=== PATIENT | female | born 1965 | race Caucasian/White ===

== ENCOUNTER 2017-01-26 19:19 | Inpatient (IN) | payer OTHER ==
[~2017-01-26] VITALS: Ht 152.4 cm; Wt 62.4 kg
[~2017-01-26 19:19] MED LIST: IRON PO
[2017-01-26] MEDS ORDERED: SOD CHLORIDE 0.9% 1,000 ML IV ONE (20:30)
[2017-01-26 21:07] LABS: BASOPHILS % 0.5 % (0.0-2.0); EOSINOPHILS # 0.3 10^3/ul (0.0-0.5); EOSINOPHILS % 4.4 % (0.0-7.0); HEMATOCRIT 39.3 % (37.0-47.0); LYMPHOCYTES # 1.8 10^3/ul (0.8-2.9); LYMPHOCYTES % 24.4 % (15.0-51.0); MEAN CORPUSCULAR HEMOGLOBIN 28.2 pg (29.0-33.0); MEAN CORPUSCULAR HGB CONC 33.1 g/dl (32.0-37.0); MEAN CORPUSCULAR VOLUME 85.2 fl (82.0-101.0); MEAN PLATELET VOLUME 9.7 fl (7.4-10.4); MONOCYTE # 0.5 10^3/ul (0.3-0.9); MONOCYTES % 7.4 % (0.0-11.0); NEUTROPHIL # 4.6 10^3/ul (1.6-7.5); NEUTROPHILS % 63.2 % (39.0-77.0); PLATELET COUNT 230 10^3/UL (140-415); RED BLOOD COUNT 4.61 10^6/ul (4.20-5.40); RED CELL DISTRIBUTION WIDTH 12.1 % (11.5-14.5); WHITE BLOOD COUNT 7.3 10^3/ul (4.8-10.8)
[2017-01-26 21:31] LABS: ALBUMIN 4.3 g/dl (3.3-4.9); ALBUMIN/GLOBULIN RATIO 1.04; BILIRUBIN,INDIRECT 0.2 mg/dl (0-1.1); BILIRUBIN,TOTAL 0.2 mg/dl (0.2-1.3); CALCIUM 9.6 mg/dl (8.4-10.2); CREATININE 0.74 mg/dl (0.44-1.00); POTASSIUM 3.9 mmol/L (3.5-5.1); TOTAL PROTEIN 8.4 g/dl (6.1-8.1)
[2017-01-26] MEDS ORDERED: IOHEXOL 300MG/ML 150 ML BTL ONE (21:43)
[2017-01-26] MEDS ORDERED: SOD CHLORIDE 0.9% 100 ML ONE (21:43)
[2017-01-26 21:45] LABS: ADD UMIC YES; UR ASCORBIC ACID 20 mg/dL (NEGATIVE); UR BILIRUBIN (Dip) NEGATIVE (NEGATIVE); UR BLOOD (Dip) NEGATIVE (NEGATIVE); UR CLARITY CLEAR (CLEAR); UR COLOR YELLOW (YELLOW); UR GLUCOSE (Dip) NEGATIVE (NEGATIVE); UR KETONES (Dip) NEGATIVE (NEGATIVE); UR LEUKOCYTE ESTERASE (Dip) 1+ Leu/ul (NEGATIVE); UR NITRITE (Dip) NEGATIVE (NEGATIVE); UR RBC 1 /HPF (0-5); UR SPECIFIC GRAVITY (Dip) 1.014 (1.003-1.030); UR TOTAL PROTEIN (Dip) NEGATIVE (NEGATIVE); UR UROBILINOGEN (Dip) NEGATIVE (NEGATIVE)
--- NOTE | 2017-01-26 22:15 | RADRPT ---
PROCEDURE: CT abdomen and pelvis without contrast. CLINICAL INDICATION: Abscess TECHNIQUE: CT scan of the abdomen and pelvis without oral contrast was performed and is reconstruc shanna at 2.5 mm contiguous axial intervals from the dome of the diaphragm to the inferior pubic rami.. The patient was scanned with intravenous contrast. Sagittal and coronal reformatted images were o btained from the axial source images. The calculated radiation dose measures 482 mGy centimeters. Th e CTDI measures 9 mGy. Individualized dose optimization technique was used for the performance of this exam. This included 1. Automated exposure control. 2. Adjustment of the mA and / or kV according to the patient's size. 3. Use of iterative reconstructed technique. COMPARISON: None FINDINGS: The lung bases are clear of any infiltrate or nodule. No effusion is seen. The liver is of normal size, contour and attenuation with no mass or ductal dilatation. No gallston es are visualized. No splenic, adrenal or pancreatic abnormalities present. Kidneys are of normal size and contour. No hydronephrosis or solid masses seen. There is a 3 mm no nobstructing stone in the midpole of the right kidney. Noted are multiple parenchymal cysts of both kidneys, the largest of which is in the lower pole of the right kidney measuring 3 cm in diameter. U reters are of normal course and caliber with no stone. No bladder mass or stone is present. Uterus is been removed. There is no adnexal mass. There is no aneurysm. No adenopathy is present. No bowel mass or obstruction is present. The appendix is not clearly visualized, however, no infl edwar appendix is seen.. No phlegmon, ascites or pneumoperitoneum is visualized. The osseous structures are intact. Noted is a rim enhancing collection in the supraumbilical anterior abdominal wall contained within t he subcutaneous fat. This measures 5.7 cm TR by 3.0 cm AP by 4.4 cm CC. There are probable septation s. No gas is seen within this collection. This is suspicious for either an abscess or liquefied ysabel marry. There is stranding of the surrounding subcutaneous fat. There is no evidence of communication with the peritoneal cavity. IMPRESSION: 5.7 x 3.0 x 4.4 cm enhancing collection in the anterior abdominal wall suspicious for abscess. This collection is amendable to ultrasound-guided aspiration and drainage. No evidence of communication w ith the peritoneal cavity. Nonobstructing 3 mm right renal calculus. Bilateral cortical renal cysts. Post hysterectomy. .Alejandro Chauhan MD, Date Time Electronically viewed and signed by .Alejandro Chauhan MD, on 01/26/2017 22:14 .A/
[2017-01-26] MEDS ORDERED: LIDOCAINE 1% (MDV) 20 ML INJ SC ONE (22:30)
[2017-01-26] MEDS ORDERED: morphine 4 MG/ML VIAL IV STA (23:36)
--- NOTE | 2017-01-27 01:51 | HP ---
Date/Time of Note Date/Time of Note DATE: 01/27/17 TIME: 01:48 Assessment/Plan VTE Prophylaxis VTE Prophylaxis Intervention: SCD's Assessment/Plan Chief Complaint/Hosp Course This is a 51-year-old female being admitted to the [facility] floor for: #1 abdominal wall abscess: CT scan does not show any connection with the peritoneal cavity. At the current time will start the patient on clindamycin. Patient apparently had an attempted bedside I&D which did elicit some drainage from the abscess however he was not complete. Will obtain a CT-guided drainage of the abscess in the a.m. Morphine for pain. #2 Urinary tract infection: Ceftriaxone 1 g every 24 hours #3 Nephrolithiasis: There is approximately 3 mm nonobstructing right kidney stone. At the current time will recommend fluid hydration and consider Flomax on discharge. #4 DVT and GI prophylaxis: SCDs, no GI prophylaxis indicated Further treatment strategy will be implemented as per the clinical course Problems: HPI/ROS Admit Date/Time Admit Date/Time Hx of Present Illness Chief complaint: Abdominal pain, mass This is a pleasant 51-year-old female who presents to the ED complaining of a mass on her abdomen for approximately 5 weeks. Patient states that she started noticing the mass approximately 5 weeks ago and it has gotten progressively bigger and since the pain is gone where she had come to the ED. She was not able to tolerate the pain and she was sitting in the position. She denies any fevers. She does report nausea. But denies any vomiting. She denies any trauma to the area of the mass. Denies any medication injections to the site of the mass. In the ED, apparently patient also had bedside drainage attempted which did result in partial drainage of the underlying abscess,though I cannot find documentation of the attempted drainage. The patient does report improvement in her pain after the I&D. Allergies: NKDA Medications: See MAR ROS Const: As per HPI Eyes : No pain discharge or redness or change in visual acuity ENT: No pain, sore throat, congestion, congestion, dysphagia or discharge Respiratory: No shortness of breath, cough, sputum, wheezing, or pleuritic pain Cardiovascular: No chest pain, palpitation, PND, or edema GI : As per HPI Genitourinary: No dysuria, hematuria, flank pain , discharge or CVA tenderness Musculoskeletal: No joint pain, back pain, neck pain, restricted range of motion in neck or joints Skin: As per HPI Neuro: No headache, dizziness, syncope, seizure, focal weakness Endocrine: No polyuria, polydipsia, temperature intolerance Psych: No hallucination, depression, anxiety or suicidal ideation PMH/Family/Social Past Medical History Medical History: no pertinent history Past Surgical History Liposuction, hysterectomy, appendectomy Family History Significant Family History: no pertinent family hx Social History Alcohol Use: none Smoking Status: Never smoker Drug Use: none Exam/Review of Systems Vital Signs Vitals Vital Signs Date Time Temp Pulse Resp B/P Pulse Ox O2 Delivery O2 Flow Rate FiO2 01/26/17 19:36 98.7 88 20 139/96 97 Exam Exam General: Patient is lying in bed in no acute distress HEENT: Atraumatic, normocephalic. The pupils are equal, round and reactive. Extraocular motor are intact Neck: Supple with full range of motion. No rigidity or meningismus Chest: Nontender Lungs: Clear to auscultation bilaterally no crackles rales or wheezing Heart: Normal S1-S2, Regular rhythm and rate. No murmur, S3, or S4 Abdomen: Soft , nontender, nondistended , bowel sounds are present. No guarding no rebound tenderness , No masses or organomegaly. No costovertebral temporal angle mass Extremities: Normal to inspection, no edema no cyanosis Neurologic: Normal mental status, speech normal, cranial nerves II through XII are intact, motor and sensory are intact, no focal weakness Skin: There is approximately a 4 x 4 area of erythema noted above the umbilicus region. There is a incision site noted. There is mild induration And erythema noted. There is some bloody discharge also noted on the dressing. Additional Comments PROCEDURE: CT abdomen and pelvis without contrast. CLINICAL INDICATION: Abscess TECHNIQUE: CT scan of the abdomen and pelvis without oral contrast was performed and is reconstructed at 2.5 mm contiguous axial intervals from the dome of the diaphragm to the inferior pubic rami.. The patient was scanned with intravenous contrast. Sagittal and coronal reformatted images were obtained from the axial source images. The calculated radiation dose measures 482 mGy centimeters. The CTDI measures 9 mGy. Individualized dose optimization technique was used for the performance of this exam. This included 1. Automated exposure control. 2. Adjustment of the mA and / or kV according to the patient's size. 3. Use of iterative reconstructed technique. COMPARISON: None FINDINGS: The lung bases are clear of any infiltrate or nodule. No effusion is seen. The liver is of normal size, contour and attenuation with no mass or ductal dilatation. No gallstones are visualized. No splenic, adrenal or pancreatic abnormalities present. Kidneys are of normal size and contour. No hydronephrosis or solid masses seen. There is a 3 mm nonobstructing stone in the midpole of the right kidney. Noted are multiple parenchymal cysts of both kidneys, the largest of which is in the lower pole of the right kidney measuring 3 cm in diameter. Ureters are of normal course and caliber with no stone. No bladder mass or stone is present. Uterus is been removed. There is no adnexal mass. There is no aneurysm. No adenopathy is present. No bowel mass or obstruction is present. The appendix is not clearly visualized, however, no inflamed appendix is seen.. No phlegmon, ascites or pneumoperitoneum is visualized. The osseous structures are intact. Noted is a rim enhancing collection in the supraumbilical anterior abdominal wall contained within the subcutaneous fat. This measures 5.7 cm TR by 3.0 cm AP by 4.4 cm CC. There are probable septations. No gas is seen within this collection. This is suspicious for either an abscess or liquefied hematoma. There is stranding of the surrounding subcutaneous fat. There is no evidence of communication with the peritoneal cavity. IMPRESSION: 5.7 x 3.0 x 4.4 cm enhancing collection in the anterior abdominal wall suspicious for abscess. This collection is amendable to ultrasound-guided aspiration and drainage. No evidence of communication with the peritoneal cavity. Nonobstructing 3 mm right renal calculus. Bilateral cortical renal cysts. Post hysterectomy. .Alejandro Chauhan MD, MD Date Time Electronically viewed and signed by .Alejandro Chauhan MD, on 01/26/2017 22: 14 .A/ CC: AGUS CRISTINA PA-C Labs Result Diagram: [id number] Medications Medications Current Medications Ondansetron HCl (Zofran Inj) 4 mg Q6H PRN IV NAUSEA AND/OR VOMITING; Start at 02:00; Status UNV Acetaminophen (Tylenol Tab) 650 mg Q6H PRN PO PAIN LEVEL 1-3 OR FEVER; Start 01/27/17 at 02:00; Status UNV Morphine Sulfate (morphine) 2 mg Q4H PRN IV SEVERE PAIN LEVEL 7-10; Start at 02:00; Status UNV Docusate Sodium (Colace) 100 mg Q12H PRN PO CONSTIPATION; Start 01/27/17 at 02 :00; Status UNV Bisacodyl (Dulcolax) 5 mg DAILY PRN PO CONSTIPATION; Start 01/27/17 at 02:00; Status UNV JUAN ANTONIO LAMAR Jan 27, 2017 01:51
[2017-01-27] MEDS ORDERED: DOCUSATE SODIUM 100 MG CAP PO PRN (02:00)
[2017-01-27] MEDS ORDERED: NACL 0.9% 3 ML SYG IV SCH (02:00)
[2017-01-27] MEDS ORDERED: ACETAMINOPHEN 325 MG TAB PO PRN (02:00)
[2017-01-27] MEDS ORDERED: ONDANSETRON 4 MG INJ IV PRN (02:00)
[2017-01-27] MEDS: CEFTRIAXONE 1 GM/50 ML (PMX) 50 ML IVPB SCH (02:00)
[2017-01-27] MEDS ORDERED: morphine 2 MG INJ IV PRN (02:00)
[2017-01-27] MEDS ORDERED: BISACODYL (EC) 5 MG TAB PO PRN (02:00)
[2017-01-27] MEDS: CLINDAMYCIN 600 MG/D5W (PMX) 50 ML IVPB SCH ×5 (02:15→18:08)
[2017-01-27] MEDS ORDERED: morphine 4 MG/ML VIAL IV STA (02:56)
--- NOTE | 2017-01-27 06:01 | EN ---
Date/Time of Note Date/Time of Note DATE: 01/27/17 TIME: 06:01 ER Progress Note Patient endorsed to me from fast track. Admitted to hospitalist. ALLYN CLAROS Jan 27, 2017 06:01
[2017-01-27 06:13] VITALS: TEMP 98.5
[2017-01-27 06:40] LABS: BASOPHIL # 0.1 10^3/ul (0.0-0.1); BASOPHILS % 0.7 % (0.0-2.0); EOSINOPHILS # 0.5 10^3/ul (0.0-0.5); EOSINOPHILS % 6.6 % (0.0-7.0); HEMATOCRIT 35.7 % (37.0-47.0); LYMPHOCYTES # 1.9 10^3/ul (0.8-2.9); LYMPHOCYTES % 28.3 % (15.0-51.0); MEAN CORPUSCULAR HEMOGLOBIN 28.6 pg (29.0-33.0); MEAN CORPUSCULAR HGB CONC 33.6 g/dl (32.0-37.0); MEAN PLATELET VOLUME 9.8 fl (7.4-10.4); MONOCYTE # 0.6 10^3/ul (0.3-0.9); MONOCYTES % 9.1 % (0.0-11.0); NEUTROPHIL # 3.8 10^3/ul (1.6-7.5); PLATELET COUNT 220 10^3/UL (140-415); RED CELL DISTRIBUTION WIDTH 12.3 % (11.5-14.5); WHITE BLOOD COUNT 6.9 10^3/ul (4.8-10.8)
[2017-01-27 07:01] LABS: ALBUMIN/GLOBULIN RATIO 1.05; BILIRUBIN,INDIRECT 0.3 mg/dl (0-1.1); BILIRUBIN,TOTAL 0.3 mg/dl (0.2-1.3); CALCIUM 9.2 mg/dl (8.4-10.2); CREATININE 0.66 mg/dl (0.44-1.00); POTASSIUM 3.7 mmol/L (3.5-5.1); TOTAL PROTEIN 7.8 g/dl (6.1-8.1)
[2017-01-27 07:08] LABS: CHOL/HDL RATIO 3.9 RATIO
[2017-01-27 09:55] LABS: INR 1.07; PROTIME 13.9 Sec (12.2-14.2); PT RATIO 1.1
[2017-01-27 12:15] VITALS: BP 159/85; PULSE 67; RESP 18; Ht 152.4 cm; Wt 62.4 kg
[2017-01-27] MEDS ORDERED: SOD CHLORIDE 0.9% 500 ML IV ONE (14:30)
[2017-01-27] MEDS ORDERED: LIDOCAINE 1% (MDV) 20 ML INJ ONE (15:52)
[2017-01-27] MEDS ORDERED: DIPHENHYDRAMINE 50 MG INJ ONE (16:19)
[2017-01-27] MEDS ORDERED: FENTAnyl 50 MCG/ML VIAL ONE (16:19)
--- NOTE | 2017-01-27 17:01 | RADRPT ---
PROCEDURE: CT guided abdominal wall abscess drainage. CLINICAL INDICATION: Abdominal wall abscess. TECHNIQUE: Informed consent was obtained. The procedure, risks, benefits, complications and alternatives were explained to the patient or the patient's family. Risks including bleeding and infection were explai prudence. The patient or the patient's family understood and was willing to proceed. A procedural pause was performed. The patient's name, date of , and procedure to be performed were verified. One or more of the following dose reduction techniques were used: Automated exposure control, adjustmen t of the mA and/or kV according to patient size, use of iterative reconstruction technique. DICOM im ages are available. Using local anesthetic, sterile technique and CT guidance, a 19-gauge Yueh needle was advanced into the fluid collection in the midline anterior abdominal wall. CT scan was performed confirming posit ion. Cloudy serous fluid was also aspirated confirming position. The needle from the Yueh catheter was removed, leaving the Yueh catheter in place within the fluid collection. A 0.035-inch Amplatz guidewire was advanced through the Yueh catheter into the fluid collection. The Yueh catheter was r emoved. The tract was dilated to 8-Mohawk. An 8.5 Mohawk multipurpose drainage catheter was advanc ed over the guidewire into the fluid collection. The guidewire was removed. Additional scanning wa s performed confirming position. The catheter was then sutured to the patient's skin with 2-0 silk. Approximately 130 ml of cloudy serous fluid fluid was aspirated. The catheter was connected to a drainage bag. A dressing was applied. The patient tolerated procedure well. COMPARISON: CT scan of the abdomen and pelvis dated 01/26/2017. FINDINGS: Final images demonstrate the drainage catheter in satisfactory position within the fluid collection in the midline anterior abdominal wall. IMPRESSION: 1. Successful CT guided anterior abdominal wall fluid collection drainage. RPTAT: QQ .Faraz Choi MD, Date Time Electronically viewed and signed by .Faraz Choi MD, on 01/27/2017 17:00 .R/
[2017-01-27 17:25] VITALS: BP 132/79; PULSE 70; RESP 18
[2017-01-28] VITALS (7 sets, daily range): BP systolic 99–139; BP diastolic 65–81; PULSE 58–103; RESP 17–20
[2017-01-28] MEDS: CLINDAMYCIN 600 MG/D5W (PMX) 50 ML IVPB SCH ×4 (00:09→20:29)
[2017-01-28] MEDS: CEFTRIAXONE 1 GM/50 ML (PMX) 50 ML IVPB SCH (03:53)
[2017-01-28 05:57] LABS: BASOPHIL # 0.1 10^3/ul (0.0-0.1); EOSINOPHILS # 0.4 10^3/ul (0.0-0.5); EOSINOPHILS % 8.8 % (0.0-7.0); HEMATOCRIT 36.6 % (37.0-47.0); HEMOGLOBIN 12.2 g/dl (12.0-16.0); LYMPHOCYTES # 1.7 10^3/ul (0.8-2.9); LYMPHOCYTES % 35.4 % (15.0-51.0); MEAN CORPUSCULAR HEMOGLOBIN 28.6 pg (29.0-33.0); MEAN CORPUSCULAR HGB CONC 33.3 g/dl (32.0-37.0); MEAN CORPUSCULAR VOLUME 85.9 fl (82.0-101.0); MONOCYTE # 0.5 10^3/ul (0.3-0.9); MONOCYTES % 9.4 % (0.0-11.0); NEUTROPHIL # 2.2 10^3/ul (1.6-7.5); NEUTROPHILS % 45.2 % (39.0-77.0); PLATELET COUNT 215 10^3/UL (140-415); RED BLOOD COUNT 4.26 10^6/ul (4.20-5.40); RED CELL DISTRIBUTION WIDTH 12.3 % (11.5-14.5); WHITE BLOOD COUNT 4.8 10^3/ul (4.8-10.8)
[2017-01-28 06:39] LABS: CALCIUM 9.3 mg/dl (8.4-10.2); CREATININE 1.03 mg/dl (0.44-1.00); POTASSIUM 4.3 mmol/L (3.5-5.1)
--- NOTE | 2017-01-28 11:43 | PN ---
Date/Time of Note Date/Time of Note DATE: 01/28/17 TIME: 11:43 Assessment/Plan VTE Prophylaxis VTE Prophylaxis Intervention: ambulation, SCD's Lines/Catheters IV [facility]from [facility] Saline Lock Urinary Cath still in place: No Assessment/Plan Chief Complaint/Hosp Course 51-year-old female admitted with a mass on her abdomen for approximately 5 weeks who was noted with an abdominal wall abscess for which she had incomplete incision and drainage in the emergency room. 1. Abdominal wall abscess. Status post CT-guided drainage of abscess with fluid collection drainage bag. -Continue antibiotics with anaerobic coverage. Follow-up with Gram stain/ culture results. -Surgery consult. 2. Nonobstructing right kidney stone. Patient asymptomatic. -We will monitor. DVT and GI prophylaxis: SCDs, no GI prophylaxis indicated Follow-up with surgery recommendations. Follow-up final cultures. Patient is seen in collaboration with . Problems: Subjective 24 Hr Interval Summary Free Text/Dictation Overall, patient is doing well. She remains afebrile. Patient had CT-guided aspiration of abscess. She is also having a drainage placed and is draining a minimal amount now. Exam/Review of Systems Vital Signs Vitals Vital Signs Date Time Temp Pulse Resp B/P Pulse Ox O2 Delivery O2 Flow Rate FiO2 01/28/17 07:23 97.9 58 18 126/77 99 Room Air Intake and Output 01/27/17 01/27/17 01/28/17 14:59 22:59 06:59 Intake Total 900 ml Balance 900 ml Exam General: Well developed,adequately built, not in any acute distress . HEENT: Normocephalic, Atraumatic, No laceration or hematoma; Eyes: PEERL, Conjunctiva clear, Anicteric sclera Neck: Supple without any lymphadenopathy, nontender, no JVD, no carotid bruits, trachea midline, no thyromegaly Cardiac: S1, S2 auscultated, regular rhythm and rate, no mumurs or gallop Pulmonary: Normal respiratory effort. Chest clear to auscultation bilaterally, no adventitious breath sounds GI: Drain placed to anterior abdomen, draining cloudy serous fluids in minimal amount. Soft, non tender, non- distended, no masses, no rebound tenderness or guarding. Bowel sounds active on all four quadrants Genitourinary: Deferred Extremities: No cyanosis, clubbing, or edema. Pulses [2+] bilaterally. Full ROM on all four extremities. No focal weakness appreciated. Neurologic: Alert to person, place, time, and situation. Affect appropriate, intact sensation. Skin: Clean,dry, and intact. No ecchymosis, no rashes, or lesions Results Result Diagram: 01/28/17 0430 01/28/17 0430 Results 24 hrs Laboratory Tests Test 01/28/17 04:30 White Blood Count 4.8 # Red Blood Count 4.26 Hemoglobin 12.2 Hematocrit 36.6 L Mean Corpuscular Volume 85.9 Mean Corpuscular Hemoglobin 28.6 L Mean Corpuscular Hemoglobin Concent 33.3 Red Cell Distribution Width 12.3 Platelet Count 215 Mean Platelet Volume 10.0 Neutrophils % 45.2 Lymphocytes % 35.4 Monocytes % 9.4 Eosinophils % 8.8 H Basophils % 1.0 Nucleated Red Blood Cells % 0.0 Neutrophils # 2.2 Lymphocytes # 1.7 Monocytes # 0.5 Eosinophils # 0.4 Basophils # 0.1 Nucleated Red Blood Cells # 0.0 Sodium Level 142 Potassium Level 4.3 Chloride Level 104 Carbon Dioxide Level 30 Anion Gap 12 Blood Urea Nitrogen 15 Creatinine 1.03 H Glucose Level 85 Calcium Level 9.3 Medications Medications Current Medications Ondansetron HCl (Zofran Inj) 4 mg Q6H PRN IV NAUSEA AND/OR VOMITING; Start at 02:00 Acetaminophen (Tylenol Tab) 650 mg Q6H PRN PO PAIN LEVEL 1-3 OR FEVER; Start 01/27/17 at 02:00 Morphine Sulfate (morphine) 2 mg Q4H PRN IV SEVERE PAIN LEVEL 7-10; Start at 02:00 Docusate Sodium (Colace) 100 mg Q12H PRN PO CONSTIPATION; Start 01/27/17 at 02 :00 Bisacodyl 5 mg 5 mg DAILY PRN PO CONSTIPATION; Start 01/27/17 at 02:00 Clindamycin HCl/ Dextrose 50 ml @ 50 mls/hr Q6 IVPB Last administered on 11:33; Admin Dose 50 MLS/HR; Start 01/27/17 at 02:15 Ceftriaxone Sodium (Rocephin) 50 ml @ 100 mls/hr Q24H IVPB Last administered on 11/29/17at 03:53; Admin Dose 100 MLS/HR; Start 01/27/17 at 02:00 Influenza Virus Vaccine (Fluzone) 0.5 ml ONCE ONCE IM* ; Start 01/29/17 at 09: 00; Stop 01/29/17 at 09:01 MAUDE HOFF NP Jan 28, 2017 11:43
[2017-01-28] MEDS ORDERED: SOD CHLORIDE 0.9% 500 ML IV ONE (14:30)
--- NOTE | 2017-01-28 18:23 | CONS ---
Date/Time of Note Date/Time of Note DATE: 01/28/17 TIME: 18:22 Assessment/Plan Assessment/Plan Chief Complaint/Hosp Course 1. Abdominal wall fluid collection status post IR drain so for bloody. Culture prelim is negative. -Local care -Drain 2. Abdominal wall cellulitis and pain -Antibiotics and pain control -Ice or heat as needed 3. History of uterine lesion questionable malignancy -Deferred to kind outpatient Thank you very much for consulting me this patient's care, Problems: Consultation Date/Type/Reason Admit Date/Time Date of Consultation: Jan 28, 2017 Type of Consultation: General surgical Reason for Consultation Abdominal wall abscess status post IR drain yesterday morning Referring Provider: MAUDE HOFF NP Hx of Present Illness Natalia Samuels is a 51-year-old female who presents to the ED complaining of a red painful mass on her abdomen for approximately 5 weeks. Patient has been pending for further imaging due to her HMO insurance however since the pain and discomfort got worse she presented to the ER for further evaluation and treatment. She denies any fevers or chills. Reports nausea but without vomiting. She denies any trauma to the area of the mass. Denies any medication injections to the site of the mass. Denies any trauma, sick contacts. Denies any dysuria or vaginal discharge. No visual neurologic changes. No chest pain or shortness of breath. No previous history of this. She has had multiple abdominal surgeries. In the ED, CT identified fluid collection and apparently bedside drainage was attempted which did result in partial drainage of the underlying abscess, though I cannot find documentation of the attempted drainage. CT-guided drainage was ordered by medical team and placed. Today surgical consultation is obtained further evaluation and treatment.. 12 point review of systems negative unless addressed in HPI. Past Medical History History of uterine lesion questionable malignancy Abdominal wall collection Past Surgical History Abdominal hysterectomy Appendectomy Abdominoplasty, 2 years ago Family History Significant Family History: no pertinent family hx Social History Alcohol Use: none Smoking Status: Never smoker Drug Use: none Exam/Review of Systems Vital Signs Vitals Vital Signs Date Time Temp Pulse Resp B/P Pulse Ox O2 Delivery O2 Flow Rate FiO2 01/28/17 07:23 97.9 58 18 126/77 99 Room Air Intake and Output 01/27/17 01/27/17 01/28/17 15:00 23:00 07:00 Intake Total 900 ml Balance 900 ml Exam Constitutional: alert, oriented, No distress Psych: nl mood/affect, No anxiety Head: atraumatic, normocephalic Eyes: EOMI, PERRL, nl conjunctiva, No icteric ENMT: mucosa pink and moist, nl external ears & nose Neck: non-tender, supple, No jvd Respiratory: normal air movement, No congested cough, No labored breathing Cardiovascular: regular rate and rhythm, No edema Gastrointestinal: soft, tender (Supraumbilical with a drain at the site with blanching erythema.), No distended, No rebound or guarding Musculoskeletal: nl extremities to inspection, nl gait and stance, No joint tenderness Extremities: normal pulses, No calf tenderness, No cyanosis Neurological: nl mental status, nl speech, nl strength Skin: rash or lesions (Abdominal wall erythema and drain site), No diaphoresis, No nl turgor Lymph: nl lymph nodes Results Result Diagram: 01/28/17 0430 01/28/17 0430 Results 24 hrs Laboratory Tests Test 01/28/17 04:30 White Blood Count 4.8 # Red Blood Count 4.26 Hemoglobin 12.2 Hematocrit 36.6 L Mean Corpuscular Volume 85.9 Mean Corpuscular Hemoglobin 28.6 L Mean Corpuscular Hemoglobin Concent 33.3 Red Cell Distribution Width 12.3 Platelet Count 215 Mean Platelet Volume 10.0 Neutrophils % 45.2 Lymphocytes % 35.4 Monocytes % 9.4 Eosinophils % 8.8 H Basophils % 1.0 Nucleated Red Blood Cells % 0.0 Neutrophils # 2.2 Lymphocytes # 1.7 Monocytes # 0.5 Eosinophils # 0.4 Basophils # 0.1 Nucleated Red Blood Cells # 0.0 Sodium Level 142 Potassium Level 4.3 Chloride Level 104 Carbon Dioxide Level 30 Anion Gap 12 Blood Urea Nitrogen 15 Creatinine 1.03 H Glucose Level 85 Calcium Level 9.3 Medications Medications Current Medications Ondansetron HCl (Zofran Inj) 4 mg Q6H PRN IV NAUSEA AND/OR VOMITING; Start at 02:00 Acetaminophen (Tylenol Tab) 650 mg Q6H PRN PO PAIN LEVEL 1-3 OR FEVER; Start 01/27/17 at 02:00 Morphine Sulfate (morphine) 2 mg Q4H PRN IV SEVERE PAIN LEVEL 7-10; Start at 02:00 Docusate Sodium (Colace) 100 mg Q12H PRN PO CONSTIPATION; Start 01/27/17 at 02 :00 Bisacodyl 5 mg 5 mg DAILY PRN PO CONSTIPATION; Start 01/27/17 at 02:00 Clindamycin HCl/ Dextrose 50 ml @ 50 mls/hr Q6 IVPB Last administered on 11:33; Admin Dose 50 MLS/HR; Start 01/27/17 at 02:15 Ceftriaxone Sodium (Rocephin) 50 ml @ 100 mls/hr Q24H IVPB Last administered on 01/28/17 03:53; Admin Dose 100 MLS/HR; Start 01/27/17 at 02:00 Influenza Virus Vaccine (Fluzone) 0.5 ml ONCE ONCE IM* ; Start 01/29/17 at 09: 00; Stop 01/29/17 at 09:01 GRETA WINN MD Jan 28, 2017 18:22
[2017-01-29] VITALS: BP 126/81; PULSE 52; RESP 18
[2017-01-29] MEDS: CLINDAMYCIN 600 MG/D5W (PMX) 50 ML IVPB SCH ×5 (01:47→23:04)
[2017-01-29] MEDS: CEFTRIAXONE 1 GM/50 ML (PMX) 50 ML IVPB SCH (04:03)
[2017-01-29 05:30] LABS: BASOPHILS % 0.9 % (0.0-2.0); EOSINOPHILS # 0.5 10^3/ul (0.0-0.5); EOSINOPHILS % 10.7 % (0.0-7.0); HEMATOCRIT 38.7 % (37.0-47.0); HEMOGLOBIN 12.6 g/dl (12.0-16.0); LYMPHOCYTES # 1.8 10^3/ul (0.8-2.9); LYMPHOCYTES % 39.7 % (15.0-51.0); MEAN CORPUSCULAR HEMOGLOBIN 27.9 pg (29.0-33.0); MEAN CORPUSCULAR HGB CONC 32.6 g/dl (32.0-37.0); MEAN CORPUSCULAR VOLUME 85.8 fl (82.0-101.0); MEAN PLATELET VOLUME 9.7 fl (7.4-10.4); MONOCYTE # 0.4 10^3/ul (0.3-0.9); MONOCYTES % 8.8 % (0.0-11.0); NEUTROPHIL # 1.8 10^3/ul (1.6-7.5); NEUTROPHILS % 39.9 % (39.0-77.0); PLATELET COUNT 232 10^3/UL (140-415); RED BLOOD COUNT 4.51 10^6/ul (4.20-5.40); RED CELL DISTRIBUTION WIDTH 11.9 % (11.5-14.5); WHITE BLOOD COUNT 4.6 10^3/ul (4.8-10.8)
[2017-01-29 06:08] LABS: CALCIUM 9.8 mg/dl (8.4-10.2); CREATININE 0.79 mg/dl (0.44-1.00); POTASSIUM 4.2 mmol/L (3.5-5.1)
[2017-01-29 07:09] VITALS: BP 127/79; PULSE 79; RESP 18
[2017-01-29] MEDS ORDERED: INFLUENZA VIRUS VACCINE 0.5 ML (DISPENSING) IM* ONE (09:00)
--- NOTE | 2017-01-29 13:20 | PN ---
Date/Time of Note Date/Time of Note DATE: 01/29/17 TIME: 13:18 Assessment/Plan VTE Prophylaxis VTE Prophylaxis Intervention: ambulation Lines/Catheters [facility] Saline Lock Urinary Cath still in place: No Assessment/Plan Chief Complaint/Hosp Course 51-year-old female admitted with a mass on her abdomen for approximately 5 weeks who was noted with an abdominal wall abscess for which she had incomplete incision and drainage in the emergency room. 1. Abdominal wall abscess. Status post CT-guided drainage of abscess with fluid collection drainage bag. -Continue antibiotics with anaerobic coverage. Follow-up with Gram stain/ culture results. -Surgery following and we will follow recs. 2. Nonobstructing right kidney stone. Patient asymptomatic. -stable. DVT and GI prophylaxis: SCDs, no GI prophylaxis indicated Follow-up with surgery recommendations. Follow-up final cultures. Patient is seen in collaboration with . Problems: Subjective 24 Hr Interval Summary Free Text/Dictation Doing well. Afebrile. Abdominal drain with Mild serous drainage. Exam/Review of Systems Vital Signs Vitals Vital Signs Date Time Temp Pulse Resp B/P Pulse Ox O2 Delivery O2 Flow Rate FiO2 01/29/17 07:09 98.7 79 18 127/79 98 Room Air Intake and Output 01/28/17 01/28/17 01/29/17 15:00 23:00 07:00 Intake Total 550 ml Balance 550 ml Exam General: Well developed,adequately built, not in any acute distress . HEENT: Normocephalic, Atraumatic, No laceration or hematoma; Eyes: PEERL, Conjunctiva clear, Anicteric sclera Neck: Supple without any lymphadenopathy, nontender, no JVD, no carotid bruits, trachea midline, no thyromegaly Cardiac: S1, S2 auscultated, regular rhythm and rate, no mumurs or gallop Pulmonary: Normal respiratory effort. Chest clear to auscultation bilaterally, no adventitious breath sounds GI: Drain placed to anterior abdomen, draining cloudy serous fluids in minimal amount. Soft, non tender, non- distended, no masses, no rebound tenderness or guarding. Bowel sounds active on all four quadrants Genitourinary: Deferred Extremities: No cyanosis, clubbing, or edema. Pulses [2+] bilaterally. Full ROM on all four extremities. No focal weakness appreciated. Neurologic: Alert to person, place, time, and situation. Affect appropriate, intact sensation. Skin: Clean,dry, and intact. No ecchymosis, no rashes, or lesions Results Result Diagram: 01/29/173 01/29/17 0433 Results 24 hrs Laboratory Tests Test 01/29/17 04:33 White Blood Count 4.6 L Red Blood Count 4.51 Hemoglobin 12.6 Hematocrit 38.7 Mean Corpuscular Volume 85.8 Mean Corpuscular Hemoglobin 27.9 L Mean Corpuscular Hemoglobin Concent 32.6 Red Cell Distribution Width 11.9 Platelet Count 232 Mean Platelet Volume 9.7 Neutrophils % 39.9 Lymphocytes % 39.7 Monocytes % 8.8 Eosinophils % 10.7 H Basophils % 0.9 Nucleated Red Blood Cells % 0.0 Neutrophils # 1.8 Lymphocytes # 1.8 Monocytes # 0.4 Eosinophils # 0.5 Basophils # 0.0 Nucleated Red Blood Cells # 0.0 Sodium Level 143 Potassium Level 4.2 Chloride Level 106 Carbon Dioxide Level 29 Anion Gap 12 Blood Urea Nitrogen 14 Creatinine 0.79 Glucose Level 104 Calcium Level 9.8 Medications Medications Current Medications Ondansetron HCl (Zofran Inj) 4 mg Q6H PRN IV NAUSEA AND/OR VOMITING; Start at 02:00 Acetaminophen (Tylenol Tab) 650 mg Q6H PRN PO PAIN LEVEL 1-3 OR FEVER; Start 01/27/17 at 02:00 Morphine Sulfate (morphine) 2 mg Q4H PRN IV SEVERE PAIN LEVEL 7-10; Start at 02:00 Docusate Sodium (Colace) 100 mg Q12H PRN PO CONSTIPATION; Start 01/27/17 at 02 :00 Bisacodyl 5 mg 5 mg DAILY PRN PO CONSTIPATION; Start 01/27/17 at 02:00 Clindamycin HCl/ Dextrose 50 ml @ 50 mls/hr Q6 IVPB Last administered on 12:06; Admin Dose 50 MLS/HR; Start 01/27/17 at 02:15 Ceftriaxone Sodium (Rocephin) 50 ml @ 100 mls/hr Q24H IVPB Last administered on 01/29/17 04:03; Admin Dose 100 MLS/HR; Start 01/27/17 at 02:00 MAUDE HOFF NP Jan 29, 2017 13:20
--- NOTE | 2017-01-29 15:26 | PN ---
Date/Time of Note Date/Time of Note DATE: 01/29/17 TIME: 15:09 Assessment/Plan Lines/Catheters IV Catheter Type (from [facility]): Saline Lock Medel in Place (from [facility]): No Assessment/Plan Chief Complaint/Hosp Course 1. Abdominal wall fluid collection status post IR drain: serosanguineous drainage. Culture prelim is negative. -Local care -Drain 2. Abdominal wall cellulitis and pain -Antibiotics and pain control -Ice or heat as needed 3. History of uterine lesion questionable malignancy -Deferred to kind outpatient 4. KOFI: cr normalized -monitor 5. UTI: -abx per sensitivity -frequent bladder emptying/cath care 6. Renal calculus: nonobstructing -medical management/followup Thank you. Patient seen and examined in collaboration with Dr. Shai Kay. Problems: Subjective 24 Hr Interval Summary Feels well. Drain with serosanguineous output. No fevers, chills, sob, congested cough, cp, palpitations, barker, dizziness, n/v/d/dysuria. Exam/Review of Systems Vital Signs Vitals Vital Signs Date Time Temp Pulse Resp B/P Pulse Ox O2 Delivery O2 Flow Rate FiO2 01/29/17 07:09 98.7 79 18 127/79 98 Room Air Intake and Output 01/28/17 01/28/17 01/29/17 15:00 23:00 07:00 Intake Total 550 ml Balance 550 ml Exam Free Text/Dictation Constitutional: alert, oriented, No distress Psych: nl mood/affect, No anxiety Head: atraumatic, normocephalic Eyes: EOMI, PERRL, nl conjunctiva, No icteric ENMT: mucosa pink and moist, nl external ears & nose Neck: non-tender, supple, No jvd Respiratory: normal air movement, No congested cough, No labored breathing Cardiovascular: regular rate and rhythm, No edema Gastrointestinal: soft, tender (Supraumbilical with a drain at the site with blanching erythema.), No distended, No rebound or guarding Musculoskeletal: nl extremities to inspection, nl gait and stance, No joint tenderness Extremities: normal pulses, No calf tenderness, No cyanosis Neurological: nl mental status, nl speech, nl strength Skin: rash or lesions (Abdominal wall erythema(improved) and drain site), palpable mass smaller No diaphoresis, No nl turgor Lymph: nl lymph nodes Results Result Diagram: 01/29/17 0433 01/29/17 0433 KOBY OMALLEY [employer] Jan 29, 2017 15:19
[2017-01-29 20:00] VITALS: BP 128/85; RESP 20
[2017-01-30] MEDS: CEFTRIAXONE 1 GM/50 ML (PMX) 50 ML IVPB SCH (01:39)
[2017-01-30 02:00] VITALS: BP 119/78; RESP 20
[2017-01-30] MEDS: CLINDAMYCIN 600 MG/D5W (PMX) 50 ML IVPB SCH ×2 (05:28→12:38)
[2017-01-30 06:09] LABS: BASOPHIL # 0.1 10^3/ul (0.0-0.1); BASOPHILS % 1.1 % (0.0-2.0); EOSINOPHILS # 0.5 10^3/ul (0.0-0.5); EOSINOPHILS % 9.7 % (0.0-7.0); HEMATOCRIT 39.7 % (37.0-47.0); HEMOGLOBIN 13.1 g/dl (12.0-16.0); LYMPHOCYTES # 1.4 10^3/ul (0.8-2.9); MEAN CORPUSCULAR HEMOGLOBIN 28.5 pg (29.0-33.0); MEAN CORPUSCULAR VOLUME 86.5 fl (82.0-101.0); MEAN PLATELET VOLUME 9.6 fl (7.4-10.4); MONOCYTE # 0.4 10^3/ul (0.3-0.9); MONOCYTES % 8.2 % (0.0-11.0); NEUTROPHIL # 2.3 10^3/ul (1.6-7.5); NEUTROPHILS % 49.8 % (39.0-77.0); PLATELET COUNT 235 10^3/UL (140-415); RED BLOOD COUNT 4.59 10^6/ul (4.20-5.40); RED CELL DISTRIBUTION WIDTH 12.3 % (11.5-14.5); WHITE BLOOD COUNT 4.7 10^3/ul (4.8-10.8)
[2017-01-30 07:09] LABS: CALCIUM 9.4 mg/dl (8.4-10.2); CREATININE 0.83 mg/dl (0.44-1.00); POTASSIUM 4.3 mmol/L (3.5-5.1)
[2017-01-30 08:19] VITALS: BP 121/81; PULSE 61; RESP 14
--- NOTE | 2017-01-30 10:24 | PN ---
Date/Time of Note Date/Time of Note DATE: 01/30/17 TIME: 10:18 Assessment/Plan Lines/Catheters IV Catheter Type (from [facility]): Saline Lock Medel in Place (from [facility]): No Assessment/Plan Chief Complaint/Hosp Course 1. Abdominal wall fluid collection status post IR drain: serosanguineous drainage. Culture prelim is negative. draining 30ml serosanguinous -Local care -Drain 2. Abdominal wall cellulitis and pain -Antibiotics and pain control -Ice or heat as needed 3. History of uterine lesion questionable malignancy -Deferred to outpatient 4. UTI: -abx per sensitivity -frequent bladder emptying/cath care 6. Renal calculus: nonobstructing -medical management/followup Thank you. Patient seen and examined in collaboration with Dr. Shai Kay. Problems: Subjective 24 Hr Interval Summary Feels well. Continues to have drainage from site. Abdominal tenderness & mass improved. No fevers, chills, sob, congested cough, cp, palpitations, barker, dizziness, n/v/d/dysuria. Exam/Review of Systems Vital Signs Vitals Vital Signs Date Time Temp Pulse Resp B/P Pulse Ox O2 Delivery O2 Flow Rate FiO2 01/30/17 08:19 98.1 61 14 121/81 96 Room Air Intake and Output 01/29/17 01/29/17 01/30/17 15:00 23:00 07:00 Intake Total 390 ml Output Total 30 ml Balance 360 ml Exam Free Text/Dictation Constitutional: alert, oriented, No distress Psych: nl mood/affect, No anxiety Head: atraumatic, normocephalic Eyes: EOMI, PERRL, nl conjunctiva, No icteric ENMT: mucosa pink and moist, nl external ears & nose Neck: non-tender, supple, No jvd Respiratory: normal air movement, No congested cough, No labored breathing Cardiovascular: regular rate and rhythm, No edema Gastrointestinal: soft, improved tenderness (Supraumbilical with a drain at the site) No distended, No rebound or guarding Musculoskeletal: nl extremities to inspection, nl gait and stance, No joint tenderness Extremities: normal pulses, No calf tenderness, No cyanosis Neurological: nl mental status, nl speech, nl strength Skin: rash or lesions (Abdominal wall erythema(improved) and drain site), palpable mass smaller No diaphoresis, No nl turgor Lymph: nl lymph nodes Results Result Diagram: 01/30/17 0535 01/30/17 0535 KOBY OMALLEY NP Jan 30, 2017 10:24
--- NOTE | 2017-01-30 10:32 | PN ---
Date/Time of Note Date/Time of Note DATE: 01/30/17 TIME: 10:22 Assessment/Plan VTE Prophylaxis VTE Prophylaxis Intervention: ambulation Lines/Catheters IV C[facility] Type [facility]from [facility] Saline Lock Urinary Cath still in place: No Assessment/Plan Chief Complaint/Hosp Course 51-year-old female admitted with a mass on her abdomen for approximately 5 weeks who was noted with an abdominal wall abscess for which she had incomplete incision and drainage in the emergency room. 1. Abdominal wall abscess. Status post CT-guided drainage of abscess with fluid collection drainage bag.Wound culture with Pseudomonas. -Continue antibiotics with anaerobic coverage. Follow-up with Gram stain/ culture results. -Surgery following and we will follow recs. 2. Nonobstructing right kidney stone. Patient asymptomatic. -stable. DVT and GI prophylaxis: SCDs, no GI prophylaxis indicated Follow-up with surgery recommendations regarding drain management. Patient is seen in collaboration with . Problems: Subjective 24 Hr Interval Summary Free Text/Dictation Patient doing well. Abdominal drain with minimal drainage still growing. Remains afebrile. Tolerating diet. Exam/Review of Systems Vital Signs Vitals Vital Signs Date Time Temp Pulse Resp B/P Pulse Ox O2 Delivery O2 Flow Rate FiO2 01/30/17 08:19 98.1 61 14 121/81 96 Room Air Intake and Output 01/29/17 01/29/17 01/30/17 14:59 22:59 06:59 Intake Total 390 ml Output Total 30 ml Balance 360 ml Exam General: Well developed,adequately built, not in any acute distress . HEENT: Normocephalic, Atraumatic, No laceration or hematoma; Eyes: PEERL, Conjunctiva clear, Anicteric sclera Neck: Supple without any lymphadenopathy, nontender, no JVD, no carotid bruits, trachea midline, no thyromegaly Cardiac: S1, S2 auscultated, regular rhythm and rate, no mumurs or gallop Pulmonary: Normal respiratory effort. Chest clear to auscultation bilaterally, no adventitious breath sounds GI: Drain placed to anterior abdomen, draining cloudy serous fluids in minimal amount. Soft, non tender, non- distended, no masses, no rebound tenderness or guarding. Bowel sounds active on all four quadrants Genitourinary: Deferred Extremities: No cyanosis, clubbing, or edema. Pulses [2+] bilaterally. Full ROM on all four extremities. No focal weakness appreciated. Neurologic: Alert to person, place, time, and situation. Affect appropriate, intact sensation. Skin: Clean,dry, and intact. No ecchymosis, no rashes, or lesions Results Result Diagram: 01/30/1735 01/30/17 0535 Results 24 hrs Laboratory Tests Test 01/30/17 05:35 White Blood Count 4.7 L Red Blood Count 4.59 Hemoglobin 13.1 Hematocrit 39.7 Mean Corpuscular Volume 86.5 Mean Corpuscular Hemoglobin 28.5 L Mean Corpuscular Hemoglobin Concent 33.0 Red Cell Distribution Width 12.3 Platelet Count 235 Mean Platelet Volume 9.6 Neutrophils % 49.8 Lymphocytes % 31.0 Monocytes % 8.2 Eosinophils % 9.7 H Basophils % 1.1 Nucleated Red Blood Cells % 0.0 Neutrophils # 2.3 Lymphocytes # 1.4 Monocytes # 0.4 Eosinophils # 0.5 Basophils # 0.1 Nucleated Red Blood Cells # 0.0 Sodium Level 143 Potassium Level 4.3 Chloride Level 105 Carbon Dioxide Level 28 Anion Gap 14 Blood Urea Nitrogen 19 Creatinine 0.83 Glucose Level 93 Calcium Level 9.4 Medications Medications Current Medications Ondansetron HCl (Zofran Inj) 4 mg Q6H PRN IV NAUSEA AND/OR VOMITING; Start at 02:00 Acetaminophen (Tylenol Tab) 650 mg Q6H PRN PO PAIN LEVEL 1-3 OR FEVER; Start 01/27/17 at 02:00 Morphine Sulfate (morphine) 2 mg Q4H PRN IV SEVERE PAIN LEVEL 7-10; Start at 02:00 Docusate Sodium (Colace) 100 mg Q12H PRN PO CONSTIPATION; Start 01/27/17 at 02 :00 Bisacodyl 5 mg 5 mg DAILY PRN PO CONSTIPATION; Start 01/27/17 at 02:00 Clindamycin HCl/ Dextrose 50 ml @ 50 mls/hr Q6 IVPB Last administered on 05:28; Admin Dose 50 MLS/HR; Start 01/27/17 at 02:15 Ceftriaxone Sodium (Rocephin) 50 ml @ 100 mls/hr Q24H IVPB Last administered on 01/30/17 01:39; Admin Dose 100 MLS/HR; Start 01/27/17 at 02:00 MAUDE HOFF NP Jan 30, 2017 10:32
[2017-01-30 13:47] VITALS: BP 123/76; RESP 20
--- NOTE | 2017-01-30 14:46 | QN ---
Documentation Comment Later today, after discussion with Dr. Kay, recommendation was to discharge patient with drain in place on oral Cipro for 10 days. Patient can be seen at Dr. Kay's outpatient clinic for drain removal in 1 week. Patient also needs home health nurse for drain care at home. Case discussed with . MAUDE HOFF NP Jan 30, 2017 14:46
--- NOTE | 2017-01-30 14:47 | PDOCDIS ---
Discharge Instructions CONDITION Patient Condition: Stable HOME CARE INSTRUCTIONS: Special Diet: Regular FOLLOW UP/APPOINTMENTS Follow-up Plan Follow-up with Dr. Kay in 1 week. [id number] [facility] [address] [place] [id number] Office Please do not put weight or traction on the tube or pulled the tube. Secure with tape in place. 1.Follow up with primary care physician in 1 week If you don't have one please let someone know, we can give you resources that may help you pick one. You may also call your insurance company to assign one to you. Review your medication list with your nurse before leaving and if you need new prescriptions please let your nurse know. I may have made changes to your home medications or given you new prescriptions, please let your primary doctor know as well. Stay compliant with your medications and report any side effects to your PCP or pharmacist. Return to the ER if you have any concerns and cannot reach your doctors or call your insurance company, they usually have a nurse that can help you. 2. Call 911 or go to the nearest emergency room if experiencing loss of consciousness, dizziness, chest pain, shortness of breath, vomiting/abdominal pain, speech difficulties, motor weakness or any unusual symptoms. MAUDE HOFF NP Jan 30, 2017 14:47
[2017-01-30] MEDS ORDERED: CIPR500T4 PO (14:50)
[2017-01-30] MEDS ORDERED: HYDR-906 PO (14:50)
[2017-01-30] MEDS: CIPROFLOXACIN 500 MG TAB PO SCH ×2 (14:55→23:41)
[2017-01-30] MEDS ORDERED: METR500T14 PO (15:47)
[2017-01-30] MEDS: metroNIDAZOLE 500 MG TAB PO SCH ×2 (17:50→21:28)
[2017-01-30 19:50] VITALS: BP 125/87; RESP 20
[2017-01-31 02:01] VITALS: BP 117/74; RESP 20
[2017-01-31] MEDS: CIPROFLOXACIN 500 MG TAB PO SCH (05:31)
[2017-01-31] MEDS: metroNIDAZOLE 500 MG TAB PO SCH ×2 (05:31→14:10)
[2017-01-31 07:36] VITALS: BP 127/77; RESP 16
--- NOTE | 2017-01-31 11:33 | PN ---
Date/Time of Note Date/Time of Note DATE: 01/31/17 TIME: 11:31 Assessment/Plan VTE Prophylaxis VTE Prophylaxis Intervention: other Lines/Catheters IV [facility]ter Type (from [facility]): Saline Lock Urinary Cath still in place: No Assessment/Plan Problems: (1) Abdominal wall abscess Status: Acute Comment: She is undergone percutaneous drainage of this under CT guidance and appears to be improving nicely. Please see the notes from surgical consult and from yesterday. The reason she is still here as we are waiting on discharge planning for arrangement of home health to help her with this drain bag. (2) Folliculitis due to Pseudomonas aeruginosa Status: Acute Comment: Wound culture states is growing pseudomonas aeruginosa which is an unusual finding. However she is on antibiotics that should cover for that. She is clinically improving. (3) UTI (urinary tract infection) Status: Acute Comment: Urine culture is negative as the urine culture specimen was obtained 2 days after initiation of antibiotics. As such she will be treated empirically with antibiotics which will cover both the abdominal wall wound and the urinary tract infection. Qualifiers: Urinary tract infection type: acute cystitis Subjective 24 Hr Interval Summary Free Text/Dictation Patient reports she is feeling significantly better. Please note she still has drain in place. Constitutional: no complaints Respiratory: no complaints Cardiovascular: no complaints Gastrointestinal: no complaints Genitourinary: no complaints Musculoskeletal: no complaints Exam/Review of Systems Vital Signs Vitals Vital Signs Date Time Temp Pulse Resp B/P Pulse Ox O2 Delivery O2 Flow Rate FiO2 01/31/17 07:36 97.7 59 16 127/77 97 01/30/17 08:19 Room Air Intake and Output 01/30/17 01/30/17 01/31/17 14:59 22:59 06:59 Intake Total 1910 ml 500 ml Output Total 35 ml 1200 ml 20 ml Balance -35 ml 710 ml 480 ml Exam Constitutional: alert, oriented Neck: non-tender, supple Respiratory: clear to auscultation, normal air movement Cardiovascular: nl pulses, regular rate and rhythm Gastrointestinal: nl liver, spleen, non-tender, other (2 cm above the umbilicus there is a midline subcutaneous drain going to drain bag), soft Results Result Diagram: 01/30/17 0535 01/30/17 0535 Medications Medications Current Medications Ondansetron HCl (Zofran Inj) 4 mg Q6H PRN IV NAUSEA AND/OR VOMITING; Start at 02:00 Acetaminophen (Tylenol Tab) 650 mg Q6H PRN PO PAIN LEVEL 1-3 OR FEVER; Start 01/27/17 at 02:00 Morphine Sulfate (morphine) 2 mg Q4H PRN IV SEVERE PAIN LEVEL 7-10; Start at 02:00 Docusate Sodium (Colace) 100 mg Q12H PRN PO CONSTIPATION; Start 01/27/17 at 02 :00 Bisacodyl (Dulcolax) 5 mg DAILY PRN PO CONSTIPATION; Start 01/27/17 at 02:00 Ciprofloxacin (Cipro) 500 mg BID@06,18 PO Last administered on 01/31/17 05:31 ; Admin Dose 500 MG; Start 01/30/17 at 14:30 Metronidazole (Flagyl) 500 mg Q8 PO Last administered on 01/31/17 05:31; Admin Dose 500 MG; Start 01/30/17 at 16:00 CHERRY WOODS MD Jan 31, 2017 11:33
[2017-01-31 14:55] VITALS: BP 150/89; RESP 16
--- NOTE | 2017-01-31 15:27 | PN ---
Date/Time of Note Date/Time of Note DATE: 01/31/17 TIME: 15:23 Assessment/Plan Lines/Catheters IV Catheter Type (from Nrs): Saline Lock Medel in Place (from Nrs): No Assessment/Plan Chief Complaint/Hosp Course 1. Abdominal wall fluid collection status post IR drain: serosanguineous drainage. Cultures noted -Local care -Drain care -may be discharged with HH for drain care per medical team. To follow in office in 1-2 weeks. Please have patient record output and character of drainage daily. 2. Abdominal wall cellulitis and pain -Antibiotics and pain control -Ice or heat as needed 3. History of uterine lesion questionable malignancy -Deferred to outpatient 4. UTI: -abx per sensitivity -frequent bladder emptying/cath care 6. Renal calculus: nonobstructing -medical management/followup Thank you. Patient seen and examined in collaboration with Dr. Shai Kay. Problems: Subjective 24 Hr Interval Summary Feels well. continues to have output per drain without change in character. No fevers, chills, sob, congested cough, cp, palpitations, barker, dizziness, n/v/d/ dysuria. Exam/Review of Systems Vital Signs Vitals Vital Signs Date Time Temp Pulse Resp B/P Pulse Ox O2 Delivery O2 Flow Rate FiO2 01/31/17 14:55 98.1 69 16 150/89 96 01/30/17 08:19 Room Air Intake and Output 01/30/17 01/30/17 01/31/17 15:00 23:00 07:00 Intake Total 1910 ml 500 ml Output Total 35 ml 1200 ml 20 ml Balance -35 ml 710 ml 480 ml Exam Free Text/Dictation Constitutional: alert, oriented, No distress Psych: nl mood/affect, No anxiety Head: atraumatic, normocephalic Eyes: EOMI, PERRL, nl conjunctiva, No icteric ENMT: mucosa pink and moist, nl external ears & nose Neck: non-tender, supple, No jvd Respiratory: normal air movement, No congested cough, No labored breathing Cardiovascular: regular rate and rhythm, No edema Gastrointestinal: soft, improved tenderness (Supraumbilical with a drain at the site) No distended, No rebound or guarding Musculoskeletal: nl extremities to inspection, nl gait and stance, No joint tenderness Extremities: normal pulses, No calf tenderness, No cyanosis Neurological: nl mental status, nl speech, nl strength Skin: rash or lesions (Abdominal wall erythema(improved) and drain site), palpable mass smaller No diaphoresis, No nl turgor Lymph: nl lymph nodes Results Result Diagram: 01/30/17 0535 01/30/17 0535 KOBY OMALLEY NP Jan 31, 2017 15:27
--- NOTE | 2017-02-01 09:38 | DS ---
Date/Time of Note Date/Time of Note DATE: 02/01/17 TIME: 09:31 Discharge Summary Admission/Discharge Info Admit Date/Time Jan 28, 2017 at 09:52 Discharge Date/Time Jan 31, 2017 at 16:40 Discharge Diagnosis 1. Abdominal wall abscess. Status post CT-guided drainage of abscess with fluid collection drainage bag.Wound culture with Pseudomonas. 2. Asymptomatic Nonobstructing right kidney stone. Patient Condition: Stable Consults ,Surgery Procedures CT-guided drainage of abscess with fluid collection drainage bag. Hospital Course 51-year-old female admitted with a mass on her abdomen for approximately 5 weeks who was noted with an abdominal wall abscess for which she had incomplete incision and drainage in the emergency room.Patient was then admitted with IV abx and she had CT-guided drainage of abscess with fluid collection drainage bag.. Bairon crouch had surgery follow-up and recommended abx for 1 week with outpatient follow-up for drain removal as patient was clinically improving. I Wound culture grew Pseudomonas. Anaerobic culture negative for growth. She was continued on appropriate abx. At this time, drain continues to have minimal bloody drainage. Patient remains clinically stable. No fevers.Abdominal exam benign. As per surgery recs,patient can be followed up in office in 1 week for drain removal. Home health Nurse arrangement done for drain management. She was given Cipro and Flagyl for 10 days on DC.She was instrcuteed to come back to ER if any fever, or changes in abdominal wound appearance, Patient verbalized DC instructions. Approximately 60 mins spent on coordinating DC summary. Patient was seen in collaboration with . Home Meds Active Scripts Metronidazole* (Metronidazole*) 500 Mg Tablet, 500 MG PO Q8 for 10 Days, #30 TAB Prov:HOFF,MAUDE V. [employer]IST 01/30/17 Hydrocodone/Acetaminophen (Elkins 5-325 Tablet) 1 Each Tablet, 1 EACH PO Q6 for PAIN, #20 TAB Prov:HOFF,MAUDE V. [employer]ICE ECONOMIST 01/30/17 Ciprofloxacin Hcl* (Ciprofloxacin Hcl*) 500 Mg Tablet, 500 MG PO BID@06,18 for 10 Days, #20 TAB Prov:HOFF,MAUDE V. [employer]ICE ECONOMIST 01/30/17 Discontinued Reported Medications [None] No Conflict Check 07/31/14 [Iron] No Conflict Check, PO DAILY 06/16/12 Follow-up Plan Follow-up with Dr. Kay in [address] [address] [facility] [address] [place] [address] Office Please do not put weight or traction on the tube or pulled the tube. Secure with tape in place. 1.Follow up with primary care physician in 1 week If you don't have one please let someone know, we can give you resources that may help you pick one. You may also call your insurance company to assign one to you. Review your medication list with your nurse before leaving and if you need new prescriptions please let your nurse know. I may have made changes to your home medications or given you new prescriptions, please let your primary doctor know as well. Stay compliant with your medications and report any side effects to your PCP or pharmacist. Return to the ER if you have any concerns and cannot reach your doctors or call your insurance company, they usually have a nurse that can help you. 2. Call 911 or go to the nearest emergency room if experiencing loss of consciousness, dizziness, chest pain, shortness of breath, vomiting/abdominal pain, speech difficulties, motor weakness or any unusual symptoms. Primary Care Provider Not On Staff Doctor MAUDE HOFF NP Feb 01, 2017 09:38
== END 2017-01-31 16:40 | disposition home health service (06) | DRG 603 ==
LOC: FTE 19:19 → MS3 01-27 03:39 → OBSVTOIN 01-28 09:52 → MS2 01-29 19:30
PROVIDERS: ADMIT Family Medicine; ATTEND Family Medicine
PROC: 0W9F30Z Drainage of Abdominal Wall with Drainage Device, Percutaneous Approach (ICD-10-PCS; principal; 2017-01-27)
DX: L02.211 Cutaneous abscess of abdominal wall (principal); N17.9 Acute kidney failure, unspecified; N39.0 Urinary tract infection, site not specified; B96.5 Pseudomonas (aeruginosa) (mallei) (pseudomallei) as the cause of diseases classified elsewhere; L03.311 Cellulitis of abdominal wall; N20.0 Calculus of kidney; Z90.710 Acquired absence of both cervix and uterus
CPT/HCPCS: 74177; 77012; 80048; 80053; 80061; 81001; 83036; 83735; 84443; 84703; 85025; 85610; 85730; 87040; 87070; 87075; 87086; 90686; G0378; J0696; J1200; J2270; J3010; J7030; J7040; Q9967